=== PATIENT | female | born 1965 | race Caucasian/White ===

== ENCOUNTER 2017-01-08 17:26 | Emergency (ER) | payer MEDICARE, MEDICAID ==
[2017-01-08] MEDS ORDERED: NS 0.9% 1000 ML* 2,000 ML IV ONE (18:01)
[2017-01-08 18:51] LABS: Hematocrit 34 % (35-47); Hemoglobin 11.2 g/dl (12.0-16.0); Mean Corpuscular HGB Conc 33 g/dl (31-36); Mean Corpuscular Hemoglobin 31 pg (27-31); Mean Corpuscular Volume 95 fL (80-97); Mean Platelet Volume 8 um3 (7.4-10.4); Red Blood Count 3.58 10^6/ul (4.0-5.4); Red Cell Distribution Width 15 % (10.5-15); White Blood Count 6.5 10^3/ul (3.5-10.8)
[2017-01-08 19:04] LABS: BUN/Creatinine Ratio 26.3 (8-20); Calcium 9.4 mg/dL (8.6-10.3); EGFR African American 79.1 (>60); EGFR Non-African American 61.5 (>60); Potassium 4.3 mmol/L (3.5-5.0); Total Bilirubin 0.2 mg/dL (0.2-1.0); Total Protein 6.7 g/dL (6.4-8.9)
[2017-01-08 20:26] LABS: Albumin 3.6 g/dL (3.2-5.2); Globulin 3.1 g/dL (2-4)
[2017-01-08] MEDS ORDERED: Oseltamivir CAP* 75 MG PO ONE (20:35)
[2017-01-08 20:44] VITALS: BP 115/86
--- NOTE | 2017-01-08 20:47 | RAD ---
Indication: Shortness of breath. Near syncope. Influenza. Comparison: April 14, 2014 Technique: Upright AP 1819 hours Report: Obesity limits assessment. Asymmetric alveolar consolidation at the LEFT lung base. Grossly clear pleural spaces. Negative for pneumothorax. The heart, pulmonary vasculature, and mediastinal contours are unremarkable. IMPRESSION: Suggestion of alveolar consolidation at the LEFT lung base concerning for potential pneumonia. Correlate with clinical assessment.
--- NOTE | 2017-01-08 22:12 | ED ---
IMat,Oliverio, scribed for Norm Carrasco MD on 01/08/17 at 1803 . Influenza-Like Illness - HPI Summary HPI Summary: LEVEL 5 CAVEAT secondary to MR. Most of the HPI is obtained from [facility] staff present at bedside. This 51 y/o female presents to ED from [facility] for dizziness and weakness since a day ago. Staff present at bedside also reports cough since 2 days ago, fever since today AM, and a near syncopal episode today, during which pt was sitting on bed and fell backward. Pt was noted with positive Influenza [employer]. PMHx includes bipolar, depression, and borderline DM. Staff denies any cardiac dz or HTN. Per housing staff, pt is able to ambulate independently at her baseline without any known dizziness or gait problem. - History of Current Complaint Chief Complaint: ED Time Seen by Provider: 01/08/17 17:40 Hx Obtained From: Patient, Family/Vp, Medical Records Onset/Duration: Gradual Onset, Still Present Associated Signs & Symptoms: Fever, Cough Related Hx: Possible Flu/Infectious Exposure - Positive Influenza [employer] today. - Allergy/Home Medications Allergies/Adverse Reactions: Allergies Allergy/AdvReac Type Severity Reaction Status Date / Time Bee Venom Allergy Unknown Unknown Verified 04/14/14 11:21 Reaction Details Loxapine Allergy Unknown Unknown Verified 04/14/14 11:21 Reaction Details Home Medications: Home Medications Acetaminophen TAB* [Tylenol TAB*] 325 - 650 mg PO Q6H PRN 01/08/17 [History Confirmed 01/08/17] Calcium Citrate-Vitamin D [Calcitrate Plus D 315-200 mg-Unit] 1 tab PO BID 01/08 [History Confirmed 01/08/17] Carbamide Peroxide 6.5% OTIC* [DEBROX 6.5% Otic*] 5 - 10 drop RIGHT EAR Q4D PRN 01/08/17 [History Confirmed 01/08/17] Cholecalciferol [Vitamin D3 Super Strength] 2,000 unit PO DAILY 01/08/17 [ History Confirmed 01/08/17] Coenzyme Q10 (Ubidecarenone) [Co-Enzyme Q10] 100 mg PO QAM 01/08/17 [History Confirmed 01/08/17] Cyanocobalamin TAB* [Vitamin B12 TAB*] 500 mcg PO EVERY OTHER DAY 01/08/17 [ History Confirmed 01/08/17] Docusate CAP* [Colace Cap*] 100 mg PO DAILY 01/08/17 [History Confirmed 01/08/17 ] Esomeprazole(NF) [NEXium(NF)] 20 mg PO DAILY 01/08/17 [History Confirmed ] Losartan TAB* [Cozaar TAB*] 50 mg PO DAILY 01/08/17 [History Confirmed 01/08/17] Lurasidone (NF) [Latuda (NF)] 120 mg PO BEDTIME 01/08/17 [History Confirmed ] Metformin ER (NF) [Glucophage ER (NF)] 750 mg PO BID WITH MEALS 01/08/17 [ History Confirmed 01/08/17] Multiple Vitamins W/ Iron [Daily Multiple Vitamin/Ir] 1 tab PO DAILY 01/08/17 [ History Confirmed 01/08/17] [place]-3 Fatty Acids [[place]-3 Fish Oil] 1 cap PO DAILY 01/08/17 [History Confirmed 01/08/17] Simvastatin (NF) [Zocor (NF)] 80 mg PO BEDTIME 01/08/17 [History Confirmed 01/08] carBAMazepine TAB(*) [TEGretol TAB(*)] 200 mg PO QAM 01/08/17 [History Confirmed 01/08/17] carBAMazepine TAB(*) [TEGretol TAB(*)] 400 mg PO QPM 01/08/17 [History Confirmed 01/08/17] PMH/Surg Hx/FS Hx/Imm Hx Endocrine/Hematology History: Reports: Hx Diabetes - borderline Psychiatric History: Reports: Hx Depression, Hx Bipolar Disorder Infectious Disease History: No Infectious Disease History: Denies: Traveled Outside the [place] in Last 30 Days - Family History Known Family History: Positive: Unknown - LEVEL 5 CAVEAT - Social History Alcohol Use: None Hx Substance Use: No Substance Use Type: Reports: None Hx Tobacco Use: No Smoking Status (MU): Never Smoked Tobacco Review of Systems - ROS Summary Review of Systems Summary: LEVEL 5 CAVEAT secondary to Positive: Fever Positive: Cough Neurological: Other - positive for dizziness Positive: Syncope - near episode today Negative: Anxious, Depressed All Other Systems Reviewed And Are Negative: No Physical Exam - Summary Physical Exam Summary: General: Comfortable, pleasant, alert HEENT: Slightly dry mucosa Neck: soft, supple, no adenopathy, no edema Heart: S1, S2, RRR, no murmurs, rubs, or gallops. Systolic blood pressure 87. Lungs: Clear to auscultation, breathing comfortable, no wheezes or rales Abdominal: Soft, flat, nontender Extremities: No pitting edema, no calf tenderness Neuro: Alert and oriented x 3 Psych: Logical, coherent Triage Information Reviewed: Yes Vital Signs On Initial Exam: Initial Vitals Temp Pulse Resp BP Pulse Ox 98.5 F 90 20 98 01/08/17 17:34 01/08/17 17:34 01/08/17 17:34 01/08/17 17:34 01/08/17 17:34 Vital Signs Reviewed: Yes Diagnostics - Vital Signs Vital Signs Temp Pulse Resp BP Pulse Ox 01/08/17 17:34 98.5 F 90 98 - Laboratory Lab Results: Lab Results 01/08/17 01/08/17 Range/Units 18:25 18:25 WBC 6.5 (3.5-10.8) 10^3/ul RBC 3.58 L (4.0-5.4) 10^6/ul Hgb 11.2 L (12.0-16.0) g/dl Hct 34 L (35-47) % MCV 95 (80-97) fL MCH 31 (27-31) pg MCHC 33 (31-36) g/dl RDW 15 (10.5-15) % Plt Count 167 (150-450) 10^3/ul MPV 8 (7.4-10.4) um3 Neut % (Auto) 79.7 (38-83) % Lymph % (Auto) 4.7 L (25-47) % [place] % (Auto) 15.1 H (1-9) % Eos % (Auto) 0.1 (0-6) % Baso % (Auto) 0.4 (0-2) % Absolute Neuts (auto) 5.2 (1.5-7.7) 10^3/ul Absolute Lymphs (auto) 0.3 L (1.0-4.8) 10^3/ul Absolute Monos (auto) 1.0 H (0-0.8) 10^3/ul Absolute Eos (auto) 0 (0-0.6) 10^3/ul Absolute Basos (auto) 0 (0-0.2) 10^3/ul Absolute Nucleated RBC 0.01 10^3/ul Nucleated RBC % 0.1 Sodium 134 (133-145) mmol/L Potassium 4.3 (3.5-5.0) mmol/L Chloride 100 L (101-111) mmol/L Carbon Dioxide 27 (22-32) mmol/L Anion Gap 7 (2-11) mmol/L BUN 25 H (6-24) mg/dL Creatinine 0.95 (0.51-0.95) mg/dL Est GFR ( Amer) 79.1 (>60) Est GFR (Non-Af Amer) 61.5 (>60) BUN/Creatinine Ratio 26.3 H (8-20) Glucose 132 H (70-100) mg/dL Calcium 9.4 (8.6-10.3) mg/dL Total Bilirubin 0.20 (0.2-1.0) mg/dL AST 25 (13-39) U/L ALT 28 (7-52) U/L Alkaline Phosphatase 53 (34-104) U/L Total Protein 6.7 (6.4-8.9) g/dL Albumin 3.6 (3.2-5.2) g/dL Globulin 3.1 (2-4) g/dL Albumin/Globulin Ratio 1.2 (1-3) Result Diagrams: 01/08/17 18:25 01/08/17 18:25 Lab Statement: Any lab studies that have been ordered have been reviewed, and results considered in the medical decision making process. - Radiology CXR Xray Interpretation: No Acute Changes Radiology Interpretation Completed By: ED Physician Re-Evaluation - Re-Evaluation First Eval Re-Evaluation Time: 20:10 Change: Unchanged Comment: Lab results are shared with housing staff and pt. Plan of care involving road test and possible discharge is discussed with pt and housing staff. Flu Symptom Course/Dx - Course Assessment/Plan: She has had 24 hours of dizziness. Today she has fever and dx with influenza. She became lightheaded and had near syncopal episode. At ED she presents with systolic blood pressure f 87. She is now much improved, walking about the ER without any symtoms after 2 L of NS. She is on a supervised home setting, and I believe that she is safe for discharge. - Diagnoses Provider Diagnoses: Influenza, Near syncope Discharge - Discharge Plan Condition: Good Disposition: HOME Prescriptions: Oseltamivir CAP* [Tamiflu CAP*] 75 mg PO BID #9 cap Patient Education Materials: Influenza (ED) Referrals: Sally Faulkner MD [Primary Care Provider] - 1 Day The documentation as recorded by the Mat hoffman Soohyun accurately reflects the service I personally performed and the decisions made by me, Norm Carrasco MD.
== END 2017-01-08 20:50 | disposition home or self-care (01) ==
LOC: ED 17:26
DX: J11.1 Influenza due to unidentified influenza virus with other respiratory manifestations (principal); R55 Syncope and collapse; F31.9 Bipolar disorder, unspecified; R73.03 Prediabetes
CPT/HCPCS: 36415; 71010; 80053; 85025; 96360; 99283; A9270-GY

== ENCOUNTER → 2017-06-29 08:09 | Emergency (ER) | payer MEDICARE, MEDICAID ==
[~2017-06-29 08:09] MED LIST: Ibuprofen TAB* 600 MG PO ONE
[2017-06-29 08:13] VITALS: BP 135/97
--- NOTE | 2017-06-29 09:09 | RAD ---
INDICATION: Left foot pain COMPARISON: None TECHNIQUE: AP, lateral, and oblique views were obtained. FINDINGS: There is no acute bony change. There is underlying osteopenia. There is first MTP joint osteoarthritis with a hallux valgus deformity. There are hammertoe deformities. There is calcification at the level of the plantar fascia insertion and there is also a plantar calcaneal spur. IMPRESSION: OSTEOARTHRITIC CHANGES. PROBABLE SECONDARY FINDINGS OF PLANTAR FASCIITIS.
--- NOTE | 2017-06-29 09:15 | RAD ---
INDICATION: Left ankle pain COMPARISON: Left foot same date TECHNIQUE: AP, lateral, and oblique views were obtained. FINDINGS: There are no acute bony findings about the ankle. The tibiotalar joint is intact. The soft tissues are normal. Please refer also to separate foot report IMPRESSION: NO ACUTE ABNORMALITIES ABOUT THE ANKLE
--- NOTE | 2017-06-29 18:40 | ED ---
Yeison Rodriguez Angela, scribed for João Lynch MD on 06/29/17 at 0827 . Lower Extremity - HPI Summary HPI Summary: Pt is a 52 y/o female presenting to [facility] c/o left ankle pain. Pt reports she was ambulating last night and today she has difficulty ambulating. No hx of trauma or heavy lifting. History is limited due to pt MR. - History of Current Complaint Chief Complaint: EDExtremityLower Stated Complaint: PAIN IN LEFT ANKLE Time Seen by Provider: 06/29/17 08:21 Hx Obtained From: Patient Onset/Duration: Hours Pain Intensity: 3 Pain Scale Used: 0-10 Numeric Timing: Constant Location: Is Discrete @ - left ankle - Allergies/Home Medications Allergies/Adverse Reactions: Allergies Allergy/AdvReac Type Severity Reaction Status Date / Time Bee Venom Allergy Unknown Unknown Verified 06/29/17 08:11 Reaction Details Loxapine Allergy Unknown Unknown Verified 06/29/17 08:11 Reaction Details PMH/Surg Hx/FS Hx/Imm Hx Endocrine/Hematology History: Reports: Hx Diabetes - borderline Psychiatric History: Reports: Hx Depression, Hx Bipolar Disorder - Cancer History Hx Chemotherapy: No Hx Radiation Therapy: No Infectious Disease History: Denies: Traveled Outside the [place] in Last 30 Days - Family History Known Family History: Positive: Unknown - LEVEL 5 CAVEAT - Social History Alcohol Use: None Hx Substance Use: No Substance Use Type: Reports: None Hx Tobacco Use: No Smoking Status (MU): Never Smoked Tobacco Review of Systems Negative: Fever, Chills Positive: Other - Left ankle pain All Other Systems Reviewed And Are Negative: Yes Physical Exam - Summary Physical Exam Summary: VITAL SIGNS: Reviewed. GENERAL: Patient is a well-developed and nourished (MALE OR FEMALE) who is lying comfortable in the stretcher. Patient is not in any acute respiratory distress. HEAD AND FACE: No signs of trauma. No ecchymosis, hematomas or skull depressions. No sinus tenderness. EYES: PERRLA, EOMI x 2, No injected conjunctiva, no nystagmus. EARS: Hearing grossly intact. Ear canals and tympanic membranes are within normal limits. MOUTH: Oropharynx within normal limits. NECK: Supple, trachea is midline, no adenopathy, no JVD, no carotid bruit, no c- spine tenderness, neck with full ROM. CHEST: Symmetric, no tenderness at palpation LUNGS: Clear to auscultation bilaterally. No wheezing or crackles. CVS: Regular rate and rhythm, S1 and S2 present, no murmurs or gallops appreciated. ABDOMEN: Soft, non-tender. No signs of distention. No rebound no guarding, and no masses palpated. Bowel sounds are normal. EXTREMITIES: FROM in all major joints, no edema, no cyanosis or clubbing. Left lower extremity: there are good pulses, good capillary refill. There is tenderness from the lower extremity to the toes. No swelling, no ecchymosis, no deformity. NEURO: Alert and oriented x 3. No acute neurological deficits. Speech is normal and follows commands. SKIN: Dry and warm Triage Information Reviewed: Yes Vital Signs On Initial Exam: Initial Vitals Temp Pulse Resp BP Pulse Ox 97.8 F 91 18 135/97 99 06/29/17 08:11 06/29/17 08:11 06/29/17 08:11 06/29/17 08:11 06/29/17 08:11 Vital Signs Reviewed: Yes Diagnostics - Vital Signs Vital Signs Temp Pulse Resp BP Pulse Ox 06/29/17 08:11 97.8 F 91 18 135/97 99 - Laboratory Lab Statement: Any lab studies that have been ordered have been reviewed, and results considered in the medical decision making process. - Radiology Left Foot XR Xray Interpretation: Positive (See Comments) - IMPRESSION: Osteoarthritic changes. Probable secondary findings of plantar fasciitis. Radiology Interpretation Completed By: Radiologist Left Ankle XR Xray Interpretation: No Acute Changes - IMPRESSION: No acute abnormalities about the ankle. Radiology Interpretation Completed By: Radiologist Lower Extremity Course/Dx - Course Course Of Treatment: Pt is a 52 y/o female presenting to [facility] c/o left ankle pain. Pt reports she was ambulating last night and today she has difficulty ambulating. No hx of trauma or heavy lifting. History is limited due to pt MR. I believe pt's pain is due to plantar fasciitis. Pt will be discharged with ibuprofen and she will follow up within the following days for further evaluation. The pt is hemodynamically stable, and alert and oriented x3. I discussed all the findings and test results with the patient. Patient was instructed to return to the emergency room immediately if any of the symptoms return or worsens. Plan of care was discussed with the patient and understands and agrees. All questions were answered at patient satisfaction. There were no further complaints or concerns. - Diagnoses Provider Diagnoses: Plantar fasciitis Discharge - Discharge Plan Condition: Stable Disposition: HOME Prescriptions: Ibuprofen TAB* [Motrin TAB* 600 MG] 600 mg PO Q6H PRN #20 tab PRN Reason: Pain Patient Education Materials: Plantar Fasciitis Exercises (ED) Referrals: Sally Faulkner MD [Primary Care Provider] - Additional Instructions: Your blood pressure was elevated during today's visit. Please follow up with your primary care physician for a blood pressure reading and to assure your symptoms are improving. The documentation as recorded by the Yeison hoffman Angela accurately reflects the service I personally performed and the decisions made by , João Lynch MD.
== END | disposition home or self-care (01) ==
LOC: ED 08:09
DX: M72.2 Plantar fascial fibromatosis (principal); M25.572 Pain in left ankle and joints of left foot
CPT/HCPCS: 99282; A9270-GY

== ENCOUNTER 2018-04-15 11:56 | Emergency (ER) | payer MEDICARE, MEDICAID ==
--- NOTE | 2018-04-15 13:01 | RAD ---
Indication: LEFT forearm pain post fall. Medial aspect mid shaft. Comparison: July 26, 2006 LEFT hand radiographs. Technique: AP and lateral views LEFT radius and ulna. REPORT AND IMPRESSION: Negative for fracture or malalignment. Congenital lunate triquetral fusion noted. Mild dorsal soft tissue swelling from the elbow to the distal forearm.
--- NOTE | 2018-04-15 13:45 | ED ---
Upper Extremity Pain - HPI Summary HPI Summary: Patient is a 52-year-old female who lives at a nursing home at [facility] who sustained a fall this morning and is complaining of left forearm injury. She denies any other pain. Denies hitting her head or LOC. There is a small bruise to the posterior left elbow. She is able to flex and extend about the elbow with no limitations of range of motion. Denies any wrist or forearm pain otherwise. Denies any hand pain. Denies any shoulder pain. She is at baseline per aid. - History of Current Complaint Chief Complaint: EDExtremityUpper Stated Complaint: FALL/LT ARM PAIN Time Seen by Provider: 04/15/18 11:59 Hx Obtained From: Patient Mechanism Of Injury: Direct Blow Onset/Duration: Started Hours Ago Timing: Constant Severity Initially: Moderate Severity Currently: Moderate Pain Location: Shoulder, Arm Character: Aching Alleviating Factor(s): Rest, Ice Associated Signs & Symptoms: Positive: Swelling, Bruising Related History: Dominant Hand Right - Risk Factors Non-Orthopedic Risk Factor: Negative DVT Risk Factors: Negative Septic Arthritis Risk Factor: Negative Compartment Syndrome Risk Factors: Pain - Allergies/Home Medications Allergies/Adverse Reactions: Allergies Allergy/AdvReac Type Severity Reaction Status Date / Time bee venom protein (honey bee) Allergy Unknown Verified 04/15/18 12:44 Reaction Details loxapine Allergy Unknown Verified 04/15/18 12:44 Reaction Details PMH/Surg Hx/FS Hx/Imm Hx Previously Healthy: Yes Endocrine/Hematology History: Reports: Hx Diabetes - borderline Psychiatric History: Reports: Hx Depression, Hx Bipolar Disorder - Cancer History Hx Chemotherapy: No Hx Radiation Therapy: No - Immunization History Hx Pertussis Vaccination: No Immunizations Up to Date: Unable to Obtain/Confirm Infectious Disease History: No Infectious Disease History: Denies: Traveled Outside the [place] in Last 30 Days - Family History Known Family History: Positive: Unknown - LEVEL 5 CAVEAT - Social History Occupation: Employed Part-time Lives: Residential Alcohol Use: None Hx Substance Use: No Substance Use Type: Reports: None Hx Tobacco Use: No Smoking Status (MU): Never Smoked Tobacco Review of Systems Constitutional: Negative Negative: Fever, Chills, Fatigue Negative: Palpitations, Chest Pain Negative: Shortness Of Breath, Cough Negative: Abdominal Pain, Vomiting, Diarrhea, Nausea Genitourinary: Negative Positive: no symptoms reported, see HPI Positive: Arthralgia - left forearm Neurological: Negative All Other Systems Reviewed And Are Negative: Yes Physical Exam Triage Information Reviewed: Yes Vital Signs On Initial Exam: Initial Vitals Temp Pulse Resp BP Pulse Ox 96.8 F 68 16 137/103 99 04/15/18 11:59 04/15/18 11:59 04/15/18 11:59 04/15/18 11:59 04/15/18 11:59 Appearance: Positive: No Pain Distress, Well-Nourished Skin: Positive: Skin Color Reflects Adequate Perfusion, Other - ecchymosis Eyes: Positive: EOMI, NAVEEN, Conjunctiva Clear Neck: Positive: Supple, No Lymphadenopathy Respiratory/Lung Sounds: Positive: Clear to Auscultation, Breath Sounds Present Cardiovascular: Positive: RRR, Pulses are Symmetrical in both Upper and Lower Extremities Musculoskeletal: Positive: Normal, Strength/ROM Intact, Pain @ - left forearm just distal to elbow Neurological: Positive: Speech Normal Psychiatric: Positive: Normal, Affect/Mood Appropriate Diagnostics - Vital Signs Vital Signs Temp Pulse Resp BP Pulse Ox 04/15/18 11:59 96.8 F 68 16 137/103 99 - Laboratory Lab Statement: Any lab studies that have been ordered have been reviewed, and results considered in the medical decision making process. Course/Dx - Course Course Of Treatment: During the course treatment, the patient is evaluated for left forearm pain. She states the majority of her pain is just distal to the elbow. There is ecchymosis with a small amount of swelling just distal to the left elbow. Full range of motion without limitations. Able to flex and extend. Denies any numbness or tingling. Pulses +2 intact bilaterally. She is at baseline per aid. Dx as contusion. - Diagnoses Provider Diagnoses: Contusion Discharge - Sign-Out/Discharge Documenting (check all that apply): Discharge/Admit/Transfer - Discharge Plan Condition: Stable Disposition: HOME Patient Education Materials: Contusion in Adults (ED) Referrals: Nathalie Vergara NP [Primary Care Provider] - Additional Instructions: Saleem wrap for 1-2 days Sling may be applied, but only for 1 day Ibuprofen as needed for pain if symptoms worsen or fail to improve, return to the ED - Billing Disposition and Condition Condition: STABLE Disposition: Home
[2018-04-15 13:53] VITALS: BP 152/107
== END 2018-04-15 13:52 | disposition home or self-care (01) ==
LOC: ED 11:56
DX: S50.12XA Contusion of left forearm, initial encounter (principal); W19.XXXA Unspecified fall, initial encounter; Y92.199 Unspecified place in other specified residential institution as the place of occurrence of the external cause; Z88.8 Allergy status to other drugs, medicaments and biological substances
CPT/HCPCS: 99282

== ENCOUNTER 2021-08-05 09:42 | Inpatient (IN) ==
[2021-08-05] MEDS ORDERED: Dexamethasone IV 4 MG/ML VIAL 1 ml VIAL IV SLOW PU ONE (10:15)
[2021-08-05] MEDS ORDERED: Lactated Ringers 1000 ml BAG 1,000 ML IV ONE ×2 (11:07→11:08)
[2021-08-05 11:20] LABS: ABS Lymphocytes 0.7 10^3/ul (1.0-4.8); ABS Monocytes 0.4 10^3/ul (0-0.8); ABS Neutrophils 3.3 10^3/ul (1.5-7.7); Eosinophil % 0.4 %; Hematocrit 28 % (35-47); Hemoglobin 9.3 g/dL (12.0-16.0); Mean Corpuscular HGB Conc 34 g/dL (31-36); Mean Corpuscular Hemoglobin 31 pg (27-31); Mean Corpuscular Volume 93 fL (80-97); Mean Platelet Volume 7.9 fL (7.4-10.4); Platelet Count 163 10^3/uL (150-450); Red Blood Count 2.97 10^6 /uL (3.70-4.87); Red Cell Distribution Width 14 % (10-15); White Blood Count 4.4 10^3/uL (3.5-10.8)
[2021-08-05 11:25] LABS: Activated Partial Thrombo Time 24.9 seconds (26.0-38.0); INR 0.92 (0.86-1.15)
[2021-08-05 11:29] LABS: Troponin I 0.02 ng/mL (<0.03)
[2021-08-05 11:32] LABS: ALT 128 U/L (7-52); AST 99 U/L (13-39); Albumin 3.3 g/dL (3.2-5.2); Alkaline Phosphatase 81 U/L (35-149); Anion Gap 6 mmol/L (2-11); Blood Urea Nitrogen 55 mg/dL (6-24); C Reactive Protein 98.18 mg/L (<8.01); CO2 Carbon Dioxide 26 mmol/L (22-32); Calcium 8.7 mg/dL (8.6-10.3); Chloride 105 mmol/L (101-111); EGFR African American 47.1 (>60); EGFR Non-African American 38.9 (>60); Globulin 3.2 g/dL (2-4); Glucose 162 mg/dL (70-100); Magnesium 1.7 mg/dL (1.9-2.7); Potassium 4.6 mmol/L (3.5-5.0); Sodium 137 mmol/L (135-145); Total Protein 6.5 g/dL (6.4-8.9)
[2021-08-05 12:04] LABS: Ferritin 115.2 ng/mL (11-307)
[2021-08-05] MEDS ORDERED: Iodixanol (CONTRAST) 320 MG/ML 100 ML SDV IV ONE (12:21)
[2021-08-05] MEDS ORDERED: Hydrocortisone 2.5% CREAM(NF) 30 GM TUBE TOPICAL PRN (15:36)
[2021-08-05] MEDS ORDERED: Carbamide Peroxide 6.5% OTIC 15 ML BTL RIGHT EAR PRN ×2 (15:36→22:00)
[2021-08-05] MEDS ORDERED: Bacitracin OINTMENT TUBE TOPICAL PRN (15:36)
[2021-08-05] MEDS ORDERED: Al Hydrox/Mg Hydrox/Simet LIQ 30 ML UDC PO PRN (15:36)
[2021-08-05] MEDS ORDERED: guaiFENesin 100 mg/5 ml LIQ unit dose cup PO PRN (15:36)
[2021-08-05 15:54] LABS: Total Iron Binding Capacity 297 mcg/dL (250-450); Transferrin 212 mg/dL (203-362)
[2021-08-05] MEDS ORDERED: Remdesivir 100 mg Vial 100 MG in NS 0.9% 250 ml 230 ML IV SCH (16:00)
[2021-08-05 16:19] LABS: Vitamin B12 493 pg/mL (180-914)
[2021-08-05 16:20] LABS: % Iron Saturation 7 % (15-55); Iron < 20 ug/dL (50-212); Unsaturated Iron Binding < 282 ug/dL
[2021-08-05 16:48] LABS: Albumin 3.2 g/dL (3.2-5.2); Albumin/Globulin Ratio 1.1 (1-3); Calcium 8.7 mg/dL (8.6-10.3); EGFR African American 55.8 (>60); EGFR Non-African American 46.1 (>60); Globulin 2.9 g/dL (2-4); Total Bilirubin 0.2 mg/dL (0.2-1.0); Total Protein 6.1 g/dL (6.4-8.9)
[2021-08-05 16:53] LABS: Potassium 5.3 mmol/L (3.5-5.0)
[2021-08-05] MEDS ORDERED: Remdesivir 100 mg Vial 200 MG in NS 0.9% 250 ml 210 ML IV ONE (17:00)
[2021-08-05] MEDS ORDERED: Dextrose 50% Syringe 50 ml 25 GM/50 ML SYRINGE IV PUSH PRN (18:32)
[2021-08-05] MEDS: Lurasidone 120 mg TAB PO SCH (23:41)
[2021-08-05] MEDS: Enoxaparin 40 MG/0.4 ML SYR SUBCUT SCH (23:44)
[2021-08-06 07:02] LABS: TSH Ultra Thyroid Stim Horm 0.42 mcIU/mL (0.34-5.60)
[2021-08-06 09:03] LABS: ALT 92 U/L (7-52); AST 63 U/L (13-39); Albumin 3.1 g/dL (3.2-5.2); Alkaline Phosphatase 72 U/L (35-149); Globulin 3.1 g/dL (2-4); Potassium 4.6 mmol/L (3.5-5.0); Total Protein 6.2 g/dL (6.4-8.9)
[2021-08-06] MEDS ORDERED: Senna TAB 8.6 mg TAB PO PRN (16:26)
[2021-08-06] MEDS ORDERED: Magnesium Hydroxide LIQ 30 ML UDC PO PRN (16:26)
[2021-08-06] MEDS: Remdesivir 100 mg Vial 100 MG in NS 0.9% 250 ml 230 ML IV SCH (21:11)
[2021-08-06] MEDS: Enoxaparin 40 MG/0.4 ML SYR SUBCUT SCH (21:13)
[2021-08-06] MEDS: Lurasidone 120 mg TAB PO SCH (21:14)
[2021-08-07 07:27] LABS: ALT 72 U/L (7-52); AST 55 U/L (13-39); Albumin 2.8 g/dL (3.2-5.2); Alkaline Phosphatase 58 U/L (35-149); Anion Gap 7 mmol/L (2-11); Blood Urea Nitrogen 38 mg/dL (6-24); CO2 Carbon Dioxide 29 mmol/L (22-32); Calcium 8.3 mg/dL (8.6-10.3); Chloride 104 mmol/L (101-111); EGFR Non-African American 67.8 (>60); Globulin 2.8 g/dL (2-4); Glucose 90 mg/dL (70-100); Potassium 4.3 mmol/L (3.5-5.0); Sodium 140 mmol/L (135-145); Total Protein 5.6 g/dL (6.4-8.9)
[2021-08-07 15:43] LABS: Total Iron Binding Capacity 237 mcg/dL (250-450); Transferrin 169 mg/dL (203-362)
[2021-08-07 16:03] LABS: % Iron Saturation 8 % (15-55); Ferritin 188.1 ng/mL (11-307); Iron < 20 ug/dL (50-212); Unsaturated Iron Binding < 222 ug/dL
[2021-08-07] MEDS: Enoxaparin 40 MG/0.4 ML SYR SUBCUT SCH (20:53)
[2021-08-07] MEDS: Remdesivir 100 mg Vial 100 MG in NS 0.9% 250 ml 230 ML IV SCH (20:55)
[2021-08-07] MEDS: Lurasidone 120 mg TAB PO SCH (20:55)
[2021-08-08] MEDS ORDERED: Ondansetron 4 mg VIAL 2 MG/ML 2 ml VIAL IV PRN (02:51)
[2021-08-08 08:52] LABS: Hematocrit 25 % (35-47); Hemoglobin 8.5 g/dL (12.0-16.0); Mean Corpuscular HGB Conc 35 g/dL (31-36); Mean Corpuscular Hemoglobin 32 pg (27-31); Mean Corpuscular Volume 92 fL (80-97); Mean Platelet Volume 7.6 fL (7.4-10.4); Platelet Count 247 10^3/uL (150-450); Red Blood Count 2.66 10^6 /uL (3.70-4.87); Red Cell Distribution Width 14 % (10-15); White Blood Count 5.3 10^3/uL (3.5-10.8)
[2021-08-08 09:10] LABS: Calcium 8.2 mg/dL (8.6-10.3); EGFR African American 78.8 (>60); EGFR Non-African American 65.1 (>60); Magnesium 1.4 mg/dL (1.9-2.7); Potassium 4.4 mmol/L (3.5-5.0)
[2021-08-08] MEDS ORDERED: Magnesium Sulfate 2 gm BAG 2 GM/50 ML BAG IVPB ONE (09:17)
[2021-08-08] MEDS: Remdesivir 100 mg Vial 100 MG in NS 0.9% 250 ml 230 ML IV SCH (21:08)
[2021-08-08] MEDS: Enoxaparin 40 MG/0.4 ML SYR SUBCUT SCH (21:16)
[2021-08-08] MEDS: Lurasidone 120 mg TAB PO SCH (21:17)
[2021-08-09] MEDS: Enoxaparin 40 MG/0.4 ML SYR SUBCUT SCH (21:30)
[2021-08-09] MEDS: Lurasidone 120 mg TAB PO SCH (21:33)
[2021-08-09] MEDS: Remdesivir 100 mg Vial 100 MG in NS 0.9% 250 ml 230 ML IV SCH (22:32)
[2021-08-10 11:13] VITALS: BP 109/62
== END 2021-08-10 12:22 | DRG 177 ==
LOC: ED 09:42 → MED 09:42 → SUATTDRO 15:21 → ED 20:04
PROVIDERS: ADMIT Student in an Organized Health Care Education/Training Program; ATTEND Internal Medicine

== ENCOUNTER 2021-08-10 07:44 | Inpatient (IN) ==
[2021-08-10] MEDS ORDERED: Al Hydrox/Mg Hydrox/Simet LIQ 30 ML UDC PO PRN (08:18)
[2021-08-10] MEDS ORDERED: Magnesium Hydroxide LIQ 30 ML UDC PO PRN (08:18)
[2021-08-10] MEDS ORDERED: Dextrose 50% Syringe 50 ml 25 GM/50 ML SYRINGE IV PUSH PRN (08:32)
[2021-08-10] MEDS ORDERED: Bacitracin OINTMENT TUBE TOPICAL PRN (08:36)
[2021-08-10] MEDS: Enoxaparin 40 MG/0.4 ML SYR SUBCUT SCH ×2 (14:47→14:50)
[2021-08-10] MEDS: Senna TAB 8.6 mg TAB PO PRN (21:35)
[2021-08-10] MEDS: Lurasidone 120 mg TAB PO SCH (21:35)
[2021-08-11] MEDS: guaiFENesin 100 mg/5 ml LIQ unit dose cup PO PRN (02:40)
[2021-08-11] MEDS: Enoxaparin 40 MG/0.4 ML SYR SUBCUT SCH (12:26)
[2021-08-11] MEDS: Senna TAB 8.6 mg TAB PO PRN (21:19)
[2021-08-11] MEDS: Lurasidone 120 mg TAB PO SCH (21:19)
[2021-08-12 06:25] LABS: Hematocrit 25 % (35-47); Hemoglobin 8.5 g/dL (12.0-16.0); Mean Corpuscular HGB Conc 34 g/dL (31-36); Mean Corpuscular Hemoglobin 31 pg (27-31); Mean Corpuscular Volume 93 fL (80-97); Mean Platelet Volume 7.2 fL (7.4-10.4); Platelet Count 424 10^3/uL (150-450); Red Blood Count 2.73 10^6 /uL (3.70-4.87); Red Cell Distribution Width 15 % (10-15); White Blood Count 8.6 10^3/uL (3.5-10.8)
[2021-08-12 06:40] LABS: Albumin 2.7 g/dL (3.2-5.2); Albumin/Globulin Ratio 0.9 (1-3); Calcium 8.3 mg/dL (8.6-10.3); EGFR African American 89.1 (>60); EGFR Non-African American 73.7 (>60); Globulin 2.9 g/dL (2-4); Potassium 4.1 mmol/L (3.5-5.0); Total Bilirubin 0.3 mg/dL (0.2-1.0); Total Protein 5.6 g/dL (6.4-8.9)
[2021-08-12 07:47] LABS: ABS Basophils 0.1 10^3/ul (0-0.2); ABS Eosinophils 0.3 10^3/ul (0-0.6); ABS Monocytes 0.8 10^3/ul (0-0.8); ABS Neutrophils 5.5 10^3/ul (1.5-7.7); Eosinophil % 3.2 %; Lymphocyte % 23.2 %; Nucleated Red Blood Cells % 0.1
[2021-08-12] MEDS: Enoxaparin 40 MG/0.4 ML SYR SUBCUT SCH (14:53)
[2021-08-12] MEDS: Lurasidone 120 mg TAB PO SCH (21:27)
[2021-08-13] MEDS: guaiFENesin 100 mg/5 ml LIQ unit dose cup PO PRN (10:05)
[2021-08-13] MEDS: Enoxaparin 40 MG/0.4 ML SYR SUBCUT SCH (14:36)
[2021-08-13] MEDS: Lurasidone 120 mg TAB PO SCH (21:50)
[2021-08-14] MEDS: guaiFENesin 100 mg/5 ml LIQ unit dose cup PO PRN ×2 (04:51→21:46)
[2021-08-14] MEDS: Enoxaparin 40 MG/0.4 ML SYR SUBCUT SCH (13:12)
[2021-08-14] MEDS: Lurasidone 120 mg TAB PO SCH (21:44)
[2021-08-15] MEDS: Ondansetron ODT 4 mg TAB 4 MG TAB SL PRN ×2 (02:34→08:41)
[2021-08-15] MEDS: Enoxaparin 40 MG/0.4 ML SYR SUBCUT SCH (13:37)
[2021-08-15] MEDS: Lurasidone 120 mg TAB PO SCH (20:59)
[2021-08-15] MEDS: Senna TAB 8.6 mg TAB PO PRN (21:00)
[2021-08-15] MEDS: guaiFENesin 100 mg/5 ml LIQ unit dose cup PO PRN (21:01)
[2021-08-16 07:06] LABS: Albumin 2.9 g/dL (3.2-5.2); Albumin/Globulin Ratio 0.9 (1-3); Calcium 8.5 mg/dL (8.6-10.3); Globulin 3.2 g/dL (2-4); Potassium 4.6 mmol/L (3.5-5.0); Total Bilirubin 0.3 mg/dL (0.2-1.0); Total Protein 6.1 g/dL (6.4-8.9)
[2021-08-16] MEDS: Enoxaparin 40 MG/0.4 ML SYR SUBCUT SCH (13:11)
[2021-08-16] MEDS: Lurasidone 120 mg TAB PO SCH (20:59)
[2021-08-17] MEDS: Enoxaparin 40 MG/0.4 ML SYR SUBCUT SCH (13:44)
[2021-08-17] MEDS: Lurasidone 120 mg TAB PO SCH (20:01)
[2021-08-18 06:28] VITALS: BP 145/73
[2021-08-18] MEDS: guaiFENesin 100 mg/5 ml LIQ unit dose cup PO PRN (08:45)
== END 2021-08-18 14:39 | disposition home or self-care (01) | DRG 177 ==
LOC: MED 13:26 → PMRU 08-12 07:00
PROVIDERS: ADMIT Physical Medicine & Rehabilitation; ATTEND Physical Medicine & Rehabilitation